=== PATIENT | male | born 1945 | race Caucasian/White ===

== ENCOUNTER → 2016-08-24 | Outpatient (CLI) | payer MEDICARE | LOC: GMAL 17:56 | PROVIDERS: ATTEND Family Medicine | DX: L03.011 Cellulitis of right finger (principal) ==

== ENCOUNTER 2016-09-08 00:05 | Observation (INO) | payer MEDICARE ==
[2016-09-08] MEDS ORDERED: LORazepam 0.5 MG TAB PO ONE (03:06)
--- NOTE | 2016-09-08 03:08 | ED.PDOC ---
History of Present Illness - General Chief Complaint: Problem Stated Complaint: not able to void Time Seen by Provider: 09/08/16 00:16 Source: RN notes reviewed, Vital Signs reviewed, family Exam Limitations: physical impairment - Patient has expressive aphasia from a prior stroke. - History of Present Illness Initial Comments: Patient is a 71 y/o male who has had difficulty voiding for the past 2 days. It became severe this evening. Patient's last void was at 0900 this AM. He is in significant pain. Timing/Duration: 24 hours Severity: severe Improving Factors: nothing Worsening Factors: nothing Associated Symptoms: fever/chills Allergies/Adverse Reactions: Allergies NO KNOWN ALLERGY Allergy (Verified 09/08/16 00:16) Home Medications: Ambulatory Orders Lorazepam [Ativan] 1 mg PO TID PRN #0 tab 05/18/14 Review of Systems - Review of Systems Constitutional: States: weakness Respiratory: States: no symptoms reported Gastrointestinal/Abdominal: States: abdominal pain Genitourinary: States: other - urinary retention Skin: States: no symptoms reported Neurological: States: pre-existing deficit, weakness Endocrine: States: no symptoms reported Hematologic/Lymphatic: States: no symptoms reported Unable to Obtain Due To: clinical condition - Expressive aphasia. provided much of the ROS. Past Medical History (General) - Patient Medical History Hx Stroke: Yes Hx Cardiac Disorders: Yes Hx Hypertension: Yes Hx Diabetes: Yes - Vaccination History Hx Tetanus, Diphtheria Vaccination: Yes Hx Influenza Vaccination: Yes Hx Pneumococcal Vaccination: Yes Immunizations Up to Date: No - Social History Hx Tobacco Use: No Hx Alcohol Use: Yes Hx Substance Use: No Hx Substance Use Treatment: No Hx Depression: Yes - Female History Patient is a Female of Child Bearing Age (10 -59 yrs old): No Patient : No Family Medical History - Family History Mother Family History: Unknown Physical Exam - Physical Exam General Appearance: Alert, Obvious distress Ears, Nose, Throat: hearing grossly normal Respiratory: lungs clear, normal breath sounds, no respiratory distress, no accessory muscle use Cardiovascular/Chest: regular rate, rhythm, no edema, no gallop, no murmur Gastrointestinal/Abdominal: normal bowel sounds, soft, no organomegaly, tenderness - Generalized abdominal tenderness out of proportion to what would be expected for presentation. Extremity: non-tender Neurologic: disoriented x 3 Skin Exam: normal color, warm/dry Progress - Progress Progress: 09/08/16 03:19 Ruiz was inserted with a return of 800 mL of urine. Due to Patient's malaise and abdominal pain out of proportion, will admit patient. - Results/Orders Results/Orders: 09/08/16 00:18 Temperature 18 F L Pulse Rate [ 82 Left] Respiratory 20 Rate Blood Pressure 121/69 [Left Arm] O2 Sat by Pulse 98 Oximetry 09/08/16 01:25 Abdomen Series [RAD] Stat 09/08/16 02:02 Catheter:Ruiz QSHIFT Laboratory Results WBC 8.0 K/mm3 (4.8-10.8) 09/08/16 00:33 RBC 3.93 M/mm3 (4.70-6.10) L 09/08/16 00:33 Hgb 11.4 gm/dL (14.0-18.0) L 09/08/16 00:33 Hct 34.4 % (42.0-52.0) L 09/08/16 00:33 MCV 87.4 fl (80.0-94.0) 09/08/16 00:33 MCH 29.0 pg (27.0-31.0) 09/08/16 00:33 MCHC 33.3 g/dL (33.0-37.0) 09/08/16 00:33 RDW 14.6 % (11.5-14.5) H 09/08/16 00:33 Plt Count 185 K/mm3 (130-400) 09/08/16 00:33 MPV 8.9 fl (7.40-10.4) 09/08/16 00:33 Absolute Neuts (auto) 4.60 K/uL (1.8-6.8) 09/08/16 00:33 Absolute Lymphs (auto) 2.30 K/uL (1.0-3.4) 09/08/16 00:33 Absolute Monos (auto) 0.90 K/uL (0.2-0.8) H 09/08/16 00:33 Absolute Eos (auto) 0.20 K/uL (0.0-0.4) 09/08/16 00:33 Absolute Basos (auto) 0.00 K/uL (0.0-0.1) 09/08/16 00:33 Neutrophils % 57.7 % (42.0-78.0) 09/08/16 00:33 Lymphocytes % 28.7 % (20.0-50.0) 09/08/16 00:33 Monocytes % 11.2 % (2.0-9.0) H 09/08/16 00:33 Eosinophils % 2.0 % (1.0-5.0) 09/08/16 00:33 Basophils % 0.4 % (0.0-2.0) 09/08/16 00:33 Sodium 135 mmol/L (135-145) 09/08/16 00:33 Potassium 4.2 mmol/L (3.6-5.0) 09/08/16 00:33 Chloride 104 mmol/L (101-111) 09/08/16 00:33 Carbon Dioxide 21 mmol/L (21-31) 09/08/16 00:33 Anion Gap 14.2 (12-18) 09/08/16 00:33 BUN 32 mg/dL (7-18) H 09/08/16 00:33 Creatinine 1.95 mg/dL (0.6-1.3) H 09/08/16 00:33 BUN/Creatinine Ratio 16.4 (10-20) 09/08/16 00:33 Random Glucose 91 mg/dL (70-105) 09/08/16 00:33 Serum Osmolality 276.6 mOsm/L (275-295) 09/08/16 00:33 Calcium 9.4 mg/dL (8.4-10.2) 09/08/16 00:33 Total Bilirubin 0.7 mg/dL (0.2-1.0) 09/08/16 00:33 AST 18 IU/L (10-42) 09/08/16 00:33 ALT 29 IU/L (10-60) 09/08/16 00:33 Alkaline Phosphatase 55 IU/L (42-121) 09/08/16 00:33 Serum Total Protein 7.2 gm/dL (6.4-8.2) 09/08/16 00:33 Albumin 4.1 g/dl (3.2-5.5) 09/08/16 00:33 Globulin 3.1 gm/dL (2.3-3.5) 09/08/16 00:33 Albumin/Globulin Ratio 1.3 (1.1-1.9) 09/08/16 00:33 Urine Color Yellow (Yellow) 09/08/16 01:13 Urine Appearance Clear (Clear) 09/08/16 01:13 Urine pH 5.5 (4.5-7.8) 09/08/16 01:13 Ur Specific [place] 1.020 (1.005-1.030) 09/08/16 01:13 Urine Protein Negative mg/dL 09/08/16 01:13 Urine Glucose (UA) Negative mg/dL (Negative) 09/08/16 01:13 Urine Ketones Trace mg/dL (NEGATIVE) 09/08/16 01:13 Urine Blood Trace-intact (Negative) H 09/08/16 01:13 Urine Nitrite Negative 09/08/16 01:13 Urine Bilirubin Negative (NEGATIVE) 09/08/16 01:13 Urine Urobilinogen 0.2 mg/dL (0.2-1.0) 09/08/16 01:13 Ur Leukocyte Esterase Negative (Negative) 09/08/16 01:13 Urine RBC 10-20 /hpf H 09/08/16 01:13 Urine WBC 0-1 /hpf 09/08/16 01:13 Ur Epithelial Cells 0 /hpf 09/08/16 01:13 Urine Bacteria 0 09/08/16 01:13 Urine Mucus Trace 09/08/16 01:13 - EKG/XRAY/CT XRAY: abdomen - Normal Departure - Departure Clinical Impression: Acute urinary retention, Abdominal pain of unknown cause, Chronic kidney disease, stage III (moderate) ICD-10 Supporting Text: Abdominal pain out of proportion to expected. Time of Disposition: 03:29 Disposition: Admit Patient Condition: Good Home Medications: Ambulatory Orders Lorazepam [Ativan] 1 mg PO TID PRN #0 tab 05/18/14 Decision To Admit - Decistion To Admit Decision to Admit Reason: Admit from ER Decision to Admit Date: 09/08/16 Decision to Admit Time: 03:15
[2016-09-08] MEDS ORDERED: MAGNESIUM HYDROXIDE 30 ML UD PO PRN (03:37)
[2016-09-08] MEDS ORDERED: ONDANSETRON INJ 4 MG/2 ML VIAL IV PRN (03:37)
[2016-09-08] MEDS ORDERED: LEVALBUTEROL NEBS 1.25 MG/3 ML VIAL INH PRN (03:37)
[2016-09-08] MEDS ORDERED: SODIUM CHLORIDE 0.9% (FLUSH) 10 ML SYG IV PRN (03:37)
[2016-09-08] MEDS ORDERED: SODIUM CHLORIDE 0.9% 1000ML 1,000 ML IVS PRN (03:44)
[2016-09-08] MEDS ORDERED: IV SET AND CAP CHANGE INJ INJ SCH (04:00)
[2016-09-08] MEDS ORDERED: OMEPRAZOLE CAP 20 MG CAP PO SCH (06:30)
[2016-09-08] MEDS ORDERED: SODIUM CHLORIDE 0.9% 10 ML VIAL IV PRN (07:15)
[2016-09-08] MEDS: LORazepam 0.5 MG TAB PO PRN ×2 (08:48→16:25)
[2016-09-08] MEDS: HYDROcodone 5MG/APAP 325MG 1 EA TAB PO PRN ×2 (08:48→14:14)
[2016-09-08] MEDS ORDERED: DEXTROSE 50% 25 GM/50 ML SYG IV PRN (13:49)
[2016-09-08] MEDS ORDERED: GLUCAGON INJ 1 MG VIAL SUBCU PRN (13:49)
[2016-09-08] MEDS ORDERED: LORazepam 0.5 MG TAB PO PRN (15:42)
[2016-09-08] MEDS ORDERED: CLOPIDOGREL 75 MG TAB PO SCH (16:00)
[2016-09-08] MEDS ORDERED: INSULIN LISPRO 100 UNITS/ML PEN SUBCU SCH (16:30)
[2016-09-08] MEDS ORDERED: metFORMIN HCL 500 MG TAB PO SCH ×2 (17:00)
[2016-09-08 20:04] VITALS: BP 160/94; TEMP 99; O2SAT 93
[2016-09-08] MEDS ORDERED: INSULIN NPH SC SCH (21:00)
[2016-09-08] MEDS ORDERED: [UNRECOGNIZED DRUG - OTHER] SC SCH (21:00)
[2016-09-08] MEDS ORDERED: GLIMEPIRIDE 2 MG TAB PO SCH (21:00)
[2016-09-08] MEDS ORDERED: traZODone HCL 50 MG TAB PO SCH (21:00)
[2016-09-08] MEDS ORDERED: BACLOFEN 10 MG TAB PO SCH (21:00)
[2016-09-08] MEDS ORDERED: ATORVASTATIN 20 MG TAB PO SCH (21:00)
[2016-09-08] MEDS ORDERED: CARVEDILOL 3.125 MG TAB PO SCH (21:00)
[2016-09-09] MEDS ORDERED: CITALOPRAM HBR 20 MG TAB PO SCH (09:00)
[2016-09-09] MEDS ORDERED: ISOSORBIDE MONONITRATE (IMDUR) 30 MG TAB PO SCH (09:00)
[2016-09-09] MEDS ORDERED: ASPIRIN EC 81 MG TAB PO SCH (09:00)
[2016-09-09] MEDS ORDERED: INSULIN NPH SC SCH (09:00)
[2016-09-09] MEDS ORDERED: LISINOPRIL 10 MG TAB PO SCH (09:00)
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
--- NOTE | 2016-10-01 23:51 | RAD ---
EXAM DESCRIPTION: Abdomen Series CLINICAL HISTORY: 71 years, Male, abdominal pain COMPARISON: Portable AP view of the chest October 27, 2015 TECHNIQUE: [Acute abdominal series] FINDINGS: [The lungs are clear without focal consolidation or pleural effusion.] [The heart is normal in size. The mediastinal contours are normal.] [The bowel gas pattern is normal.][There is no evidence of free air.][There are no abnormal masses or calcifications.][Limited evaluation of the liver, spleen, and kidneys demonstrate no gross abnormalities.] [The osseous structures are age appropriate.] IMPRESSION: 1. [No acute cardiopulmonary disease.]2. [No acute intraabdominal process]. Electronically signed by: Oseas Rocha MD 09/08/2016 2:01 AM TECHNICAL SUPPORT ASSOCIATE
== END 2016-09-08 19:13 | disposition home or self-care (01) ==
LOC: ER 00:05 → MS 03:34
PROVIDERS: ADMIT Emergency Medicine; ATTEND Nurse Practitioner Family
DX: N40.1 Benign prostatic hyperplasia with lower urinary tract symptoms (principal); R33.8 Other retention of urine; R10.9 Unspecified abdominal pain; I12.9 Hypertensive chronic kidney disease with stage 1 through stage 4 chronic kidney disease, or unspecified chronic kidney disease; N18.3 Chronic kidney disease, stage 3 (moderate); J44.9 Chronic obstructive pulmonary disease, unspecified; K21.9 Gastro-esophageal reflux disease without esophagitis; E11.22 Type 2 diabetes mellitus with diabetic chronic kidney disease; I69.351 Hemiplegia and hemiparesis following cerebral infarction affecting right dominant side; I69.320 Aphasia following cerebral infarction; I25.10 Atherosclerotic heart disease of native coronary artery without angina pectoris; E78.5 Hyperlipidemia, unspecified; K59.09 Other constipation; Z66 Do not resuscitate; Z79.84 Long term (current) use of oral hypoglycemic drugs; Z79.4 Long term (current) use of insulin; Z79.02 Long term (current) use of antithrombotics/antiplatelets; Z79.82 Long term (current) use of aspirin; Z79.899 Other long term (current) drug therapy
CPT/HCPCS: 36415; 36416 ×2; 51702; 74020; 80048; 80053; 80061; 81001; 82948 ×3; 83036; 83690; 85025 ×2; 94760 ×2; 96372; 99284; G0378; J1815; J7030

== ENCOUNTER 2016-11-24 14:47 | Emergency (ER) | payer MEDICARE ==
[2016-11-24] MEDS ORDERED: SODIUM CHLORIDE 0.9% 1000ML 1,000 ML ONE (14:56)
[2016-11-24] MEDS ORDERED: SODIUM CHLORIDE 0.9% 1000ML 1,000 ML IVS ONE ×2 (15:06→16:02)
[2016-11-24] MEDS ORDERED: methylPREDNISolone SODIUM SUC 125 MG/2 ML VIAL IV ONE (15:15)
--- NOTE | 2016-11-24 15:24 | RAD ---
EXAM DESCRIPTION: Chest,1 View CLINICAL HISTORY: 71 years Male, hypotension COMPARISON: 09/08/2016 IMPRESSION: The heart is enlarged. Central pulmonary vascular congestion has increased since the prior exam. Left greater than right interstitial and patchy bibasilar airspace opacities are present. The findings may reflect CHF with asymmetric pulmonary edema versus multifocal pneumonia. Small left pleural effusion. No pneumothorax. No acute osseous abnormality. Electronically signed by: Manav Montgomery MD 11/24/2016 3:24 PM CDT
[2016-11-24] MEDS ORDERED: NOREPINEPHRINE BITARTRATE 4 MG/4 ML VIAL IVPB ONE (15:48)
[2016-11-24] MEDS ORDERED: DEXTROSE 5% 250ML 250 ML ONE (15:49)
[2016-11-24] MEDS ORDERED: NOREPINEPHRINE BITARTRATE 4 MG in DEXTROSE 5% 250ML 250 ML IVPB SCH (16:00)
[2016-11-24] MEDS ORDERED: PIPERACILLIN/TAZOBACTAM 3.375 GM in SODIUM CHLORIDE 0.9% 100ML 100 ML IVPB ONE (16:17)
[2016-11-24] MEDS ORDERED: SODIUM CHLORIDE 0.9% 1000ML 1,000 ML IVS PRN (16:20)
[2016-11-24] MEDS ORDERED: PIPERACILLIN/TAZOBACTAM 3.375 GM VIAL IVPB ONE (16:22)
[2016-11-24] MEDS ORDERED: SODIUM CHLORIDE 0.9% 100ML 100 ML IVPB ONE (16:22)
[2016-11-24] MEDS ORDERED: HEPARIN SODIUM (PORCINE) 5,000 U/ML VIAL IV ONE (16:30)
[2016-11-24] MEDS ORDERED: CLOPIDOGREL 75 MG TAB PO ONE (16:31)
[2016-11-24] MEDS ORDERED: ASPIRIN TABLET 325 MG TAB PO ONE (16:31)
--- NOTE | 2016-11-24 16:36 | ED.PDOC ---
History of Present Illness - General Chief Complaint: Neuro Symptoms/Deficits Stated Complaint: fever/altered loc Time Seen by Provider: 11/24/16 15:05 Source: family Exam Limitations: clinical condition - History of Present Illness Initial Comments: the patient is a 71-year-old male being brought in by his secondary tofever and altered mental status. The patient started requiring some assistance with his transfers yesterday which is unusual. Additionally he was driving his wheelchair into the wall. He was showing some confusion over his baseline. At his baseline. He only says a couple of words over and over. 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 On the way up. His reports that he passed out in the car. The patient is fairly lethargic upon our initial evaluation here. He is pale. Systolic blood pressures are in the 50s and that has been confirmed with a manual blood pressure. The patient reports that he had been having fevers up to 102 and 103. He does have a history of recurrent pulmonary infections as well as recurrent urinary tract infections including prostatitis. He does have several cardiac stents. He does take Plavix. There was no indication of any chest pain. No indication of any headache. The patient's mentation improved back to his baseline status after getting his blood pressures back up into the 90s on the systolic end. There were some significant PACs and PVCs prior to his blood pressure improving. Afterwards his rhythm shows a normal sinus rhythm with occasional intermittent mild sinus tachycardia. The patient does have rales at the left lung base primarily. Abdominal exam does not elicit any spots of pain. I see no other obvious source of infection. No evidence of expression of pain with movement of his neck or legs. Timing/Duration: 24 hours Severity: severe Improving Factors: nothing Worsening Factors: nothing Associated Symptoms: fever/chills, malaise, weakness Allergies/Adverse Reactions: Allergies NO KNOWN ALLERGY Allergy (Verified 09/08/16 00:16) Home Medications: Ambulatory Orders Allopurinol [Zyloprim] 100 mg PO .QOD 09/08/16 Aspirin [Aspirin EC Low Dose] 81 mg PO DAILY 09/08/16 Atorvastatin Calcium [Lipitor] 20 mg PO BEDTIME 09/08/16 Baclofen 20 mg PO TID 09/08/16 Carvedilol 6.25 mg PO BID 09/08/16 Citalopram Hydrobromide [Celexa] 30 mg PO DAILY 09/08/16 Clopidogrel Bisulfate [Plavix] 75 mg PO QD 09/08/16 Glimepiride 2 mg PO BID 09/08/16 Ibuprofen-Diphenhydramine Citr [Motrin Pm 200-38 mg] 2 tab PO BEDTIME 09/08/16 Insulin NPH (Human) (Isophane) [Humulin N] 16 unit SC BEDTIME 09/08/16 Insulin NPH (Human) (Isophane) [Humulin N] 20 unit SC QAM 09/08/16 Isosorbide Mononitrate [Isosorbide Mononitrate ER] 30 mg PO DAILY 09/08/16 Lisinopril 20 mg PO DAILY 09/08/16 Lorazepam [Ativan] 0.5 mg PO BEDTIME PRN 09/08/16 Metformin HCl 500 mg PO 0900,1700 09/08/16 Tamsulosin HCl [Flomax] 0.4 mg PO DAILY #30 cap 09/08/16 traZODone HCL [Desyrel] 25 mg PO BEDTIME 09/08/16 Review of Systems - Review of Systems Review of Systems: 11/24/16 16:36 review of systems as given by his and is limited due to the patient's ability to communicate Constitutional: States: diaphoresis, fever, malaise, weakness EENTM: States: no symptoms reported Respiratory: States: cough - mild Cardiology: States: no symptoms reported Gastrointestinal/Abdominal: States: no symptoms reported Genitourinary: States: no symptoms reported Musculoskeletal: States: no symptoms reported Skin: States: no symptoms reported Neurological: States: other - confusion Endocrine: States: no symptoms reported Hematologic/Lymphatic: States: no symptoms reported All other Systems: No Change from Baseline Past Medical History (General) - Patient Medical History Hx Seizures: No Hx Stroke: Yes Hx Asthma: No Hx of COPD: No Hx Cardiac Disorders: Yes Hx Congestive Heart Failure: No Hx Pacemaker: No Hx Hypertension: Yes Hx Diabetes: Yes Hx MRSA: No Surgical History: other - Vaccination History Hx Tetanus, Diphtheria Vaccination: Yes Hx Influenza Vaccination: Yes Hx Pneumococcal Vaccination: Yes - Social History Hx Tobacco Use: No Hx Alcohol Use: Yes Hx Substance Use: No Hx Substance Use Treatment: No Hx Depression: Yes Hx Physical Abuse: No Hx Emotional Abuse: No - Female History Patient : No Family Medical History - Family History Mother Family History: Unknown Physical Exam - Physical Exam General Appearance: Lethargic - initially but back towards baseline once blood pressure is improved Eye Exam: bilateral normal Ears, Nose, Throat: hearing grossly normal, normal ENT inspection, normal pharynx Neck: non-tender, full range of motion, supple Respiratory: chest non-tender, other - Rales primarily to the left lower lobe but he does have some mild scattered rhonchi. Cardiovascular/Chest: regular rate, rhythm, no edema Peripheral Pulses: radial,right: 1+, radial,left: 1+, dorsalis pedis,right: 1+, dorsalis pedis,left: 1+ Gastrointestinal/Abdominal: non tender, soft Rectal Exam: deferred Back Exam: normal inspection, no CVA tenderness, no vertebral tenderness Extremity: normal range of motion, non-tender, normal inspection, no pedal edema , no calf tenderness, normal capillary refill Neurologic: other - initially lethargic. This improves with correction of the blood pressure. The patient has long-standing expressive aphasia and a contracture of the right upper extremity from previous stroke Skin Exam: pallor Comments: Vital Signs - 24 hr 11/24/16 11/24/16 11/24/16 15:02 15:07 15:14 Temperature 99.5 F Pulse Rate [ 100 H 96 H RIGHT BRACHIAL] Respiratory 24 20 Rate Blood Pressure 67/33 58/41 [RT BRACHIAL] O2 Sat by Pulse 95 85 L 97 Oximetry Progress - Progress Progress: 11/24/16 16:39 11/24/16 16:40 the patient is a 71-year-old male presenting due to fever and confusion found to be severely hypotensive after passing out in the car coming up here With his . the patient is most likely septic possibly from a left lower lobe pneumonia. Given the acute on chronic renal failure, the lactic acidosis and the elevation of cardiac enzymes and do suspect that he has been hypotensive for at least 12 hours. He certainly may have an infectious process separate from a non-ST elevation VA due to coronary pathology but this seems less likely. He is being given heparin IV, Plavix by mouth and aspirin by mouth. He does have a history of coronary stents. I have no previous EKGs to compare to. An echocardiogram may be beneficial upon arrival. The patient has received approximately 2 L of IV fluids and is on levophed for correction of hypotension. Altered mental status is actually corrected back to his baseline with improvement of his blood pressures on the systolic and back into the 80s and 90s. Results of the urinalysis are still pending at the time of this note. They will be sent along. The patient has received a dose of IV Solu-Medrol as well as a dose of IV Zosyn. Blood cultures have been performed. transferring for higher level of care and further specialty evaluation. certainly repeat cardiac enzymes are warranted upon arrival. Along with a repeat EKG. And possibly a repeat chest x-ray. Critical care time spent 45 minutes excluding other billable procedures. - Results/Orders Results/Orders: Laboratory Tests 11/24/16 11/24/16 11/24/16 15:27 15:27 15:27 WBC 11.4 H RBC 3.27 L Hgb 9.3 L Hct 28.8 L MCV 87.9 MCH 28.4 MCHC 32.3 L RDW 14.9 H Plt Count 166 MPV 9.3 Absolute Neuts (auto) 9.50 H Absolute Lymphs (auto) 1.00 Absolute Monos (auto) 0.90 H Absolute Eos (auto) 0.00 Absolute Basos (auto) 0.00 Neutrophils % 82.6 H Lymphocytes % 8.7 L Monocytes % 8.3 Eosinophils % 0.0 L Basophils % 0.4 PT 14.2 H INR 1.260 PTT (SP) 27.8 D-Dimer, Quantitative 281 H* Sodium 136 Potassium 4.7 Chloride 105 Carbon Dioxide 20 L Anion Gap 15.7 BUN 38 H Creatinine 2.75 H BUN/Creatinine Ratio 13.8 Random Glucose 138 H Serum Osmolality 283.2 Lactic Acid Calcium 8.4 Magnesium 1.5 L Total Bilirubin 1.0 AST 29 ALT 22 Alkaline Phosphatase 40 L Creatine Kinase 142 CK-MB (CK-2) 10.7 H* CK-MB (CK-2) % Not Reportable Troponin I 2.14 H* B-Natriuretic Peptide 645.0 H* Serum Total Protein 5.9 L Albumin 3.1 L Globulin 2.8 Albumin/Globulin Ratio 1.1 11/24/16 15:27 WBC RBC Hgb Hct MCV MCH MCHC RDW Plt Count MPV Absolute Neuts (auto) Absolute Lymphs (auto) Absolute Monos (auto) Absolute Eos (auto) Absolute Basos (auto) Neutrophils % Lymphocytes % Monocytes % Eosinophils % Basophils % PT INR PTT (SP) D-Dimer, Quantitative Sodium Potassium Chloride Carbon Dioxide Anion Gap BUN Creatinine BUN/Creatinine Ratio Random Glucose Serum Osmolality Lactic Acid 6.0 H* Calcium Magnesium Total Bilirubin AST ALT Alkaline Phosphatase Creatine Kinase CK-MB (CK-2) CK-MB (CK-2) % Troponin I B-Natriuretic Peptide Serum Total Protein Albumin Globulin Albumin/Globulin Ratio chest x-ray shows a possible left lower lobe infiltrate with vascular congestion consistent with a CHF exacerbation. EKG shows low voltage in the limb leads with a possible Q-wave in lead 3. Nonspecific T-wave changes in V4, V5 and V6. Normal sinus rhythm. Departure - Departure Clinical Impression: Septic shock, Non-ST elevation VA (NSTEMI) Pneumonia Qualifiers: Pneumonia type: due to unspecified organism Laterality: left Lung location: lower lobe of lung Qualified Code(s): J18.9 - Pneumonia, unspecified organism Disposition: Transfer to Hospital Referrals: Eugene Burris III, MD [Primary Care Provider] - 1-2 Weeks Home Medications: Ambulatory Orders Allopurinol [Zyloprim] 100 mg PO .QOD 09/08/16 Aspirin [Aspirin EC Low Dose] 81 mg PO DAILY 09/08/16 Atorvastatin Calcium [Lipitor] 20 mg PO BEDTIME 09/08/16 Baclofen 20 mg PO TID 09/08/16 Carvedilol 6.25 mg PO BID 09/08/16 Citalopram Hydrobromide [Celexa] 30 mg PO DAILY 09/08/16 Clopidogrel Bisulfate [Plavix] 75 mg PO QD 09/08/16 Glimepiride 2 mg PO BID 09/08/16 Ibuprofen-Diphenhydramine Citr [Motrin Pm 200-38 mg] 2 tab PO BEDTIME 09/08/16 Insulin NPH (Human) (Isophane) [Humulin N] 16 unit SC BEDTIME 09/08/16 Insulin NPH (Human) (Isophane) [Humulin N] 20 unit SC QAM 09/08/16 Isosorbide Mononitrate [Isosorbide Mononitrate ER] 30 mg PO DAILY 09/08/16 Lisinopril 20 mg PO DAILY 09/08/16 Lorazepam [Ativan] 0.5 mg PO BEDTIME PRN 09/08/16 Metformin HCl 500 mg PO 0900,1700 09/08/16 Tamsulosin HCl [Flomax] 0.4 mg PO DAILY #30 cap 09/08/16 traZODone HCL [Desyrel] 25 mg PO BEDTIME 09/08/16 Transfer to Outside Facility - Transfer Information Accepting Provider:: dr francisco Accepting Facility: [facility] Reason for Transfer: ICU
[2016-11-24] MEDS ORDERED: IPRATROPIUM/ALBUTEROL 3 ML VIAL NEB ONE ×2 (16:47→16:48)
[2016-11-24] MEDS ORDERED: FUROSEMIDE INJ 40 MG/4 ML VIAL IV ONE (16:51)
[2016-11-24 17:03] VITALS: O2SAT 100
[2016-11-24 18:38] VITALS: BP 103/50; TEMP 98.2
== END 2016-11-24 17:55 | disposition short-term general hospital (02) ==
LOC: ER 14:47
DX: I21.4 Non-ST elevation (NSTEMI) myocardial infarction (principal); A41.9 Sepsis, unspecified organism; J18.9 Pneumonia, unspecified organism; R65.21 Severe sepsis with septic shock; I69.920 Aphasia following unspecified cerebrovascular disease; I69.951 Hemiplegia and hemiparesis following unspecified cerebrovascular disease affecting right dominant side; I10 Essential (primary) hypertension; E11.9 Type 2 diabetes mellitus without complications; Z79.02 Long term (current) use of antithrombotics/antiplatelets; Z87.440 Personal history of urinary (tract) infections; Z79.4 Long term (current) use of insulin; Z79.82 Long term (current) use of aspirin
CPT/HCPCS: 36415; 71010; 80053; 81001; 82550; 82553; 83605; 83735; 83880; 84484; 85025; 85379; 85610; 85651; 85730; 87040; 87502; 93005; 94640; G0103; J1644; J1940; J2543; J2930; J7030; J7050; J7060; J7620